=== PATIENT | female | born 1980 | race Caucasian/White ===

== ENCOUNTER 2016-07-31 17:38 | Emergency (ER) | payer OTHER ==
[2016-07-31] MEDS ORDERED: Metoclopramide 10 MG/2 ML SDV IVPUSH ONE (18:02)
[2016-07-31] MEDS ORDERED: HYDROmorphone 0.5 MG/0.5 ML Syringe IVPUSH ONE ×2 (18:02→18:44)
--- NOTE | 2016-07-31 18:07 | EDM.PDOC ---
<Dave Morris - Last Filed: 07/31/16 20:32> ED HPI GENERAL MEDICAL PROBLEM - General Chief Complaint: Abdominal Pain Stated Complaint: LT SIDE ABD PAIN Time Seen by Provider: 07/31/16 18:01 - Related Data Allergies Allergy/AdvReac Type Severity Reaction Status Date / Time No Known Allergies Allergy Verified 07/02/15 08:38 Home Meds: Home Meds Hydrocodone/Acetaminophen [[place] 5-325 Tablet] 1 - 2 tab PO Q6H PRN #20 tablet 07/02/15 [Rx] Levofloxacin [Levaquin] 1 tab PO Q24H #4 tablet 07/02/15 [Rx] Ondansetron [Zofran ODT] 1 tab PO Q8H PRN #20 tab.dis 07/02/15 [Rx] Tamsulosin [Flomax] 1 tab PO DAILY #4 cap.er 07/02/15 [Rx] Course - Vital Signs Last Recorded V/S: Last Vital Signs Temp 37.1 C 07/31/16 17:48 Pulse 87 07/31/16 18:57 Resp 16 07/31/16 18:57 BP 127/74 07/31/16 18:57 Pulse Ox 98 07/31/16 18:57 - Orders/Labs/Meds Labs: Laboratory Tests 07/31/16 07/31/16 Range/Units 17:55 17:55 Urine Color Light yellow (Yellow) Urine Appearance Clear (Clear) Urine pH 6.0 (5.0-8.0) Ur Specific [place] 1.010 (1.005-1.030) Urine Protein Negative (Negative) Urine Glucose (UA) Negative (Negative) Urine Ketones Negative (Negative) Urine Occult Blood Trace-lysed H (Negative) Urine Nitrite Negative (Negative) Urine Bilirubin Negative (Negative) Urine Urobilinogen 0.2 (0.2-1.0) Ur Leukocyte Esterase Negative (Negative) Urine RBC 0-5 (0-5) /hpf Urine WBC 0-5 (0-5) /hpf Ur Epithelial Cells Not Reportable Ur Squamous Epith Cells 5-10 H (0-5) /hpf Urine Bacteria Few (FEW) /hpf Urine Mucus Not seen (FEW) /hpf Urine HCG, Qual Negative (NEGATIVE) Meds: Medications Discontinued Medications Generic Name Dose Route Start Last Admin Trade Name Freq PRN Reason Stop Dose Admin Hydromorphone HCl 0.5 mg 07/31/16 18:02 07/31/16 18:19 Dilaudid IVPUSH 07/31/16 18:03 0.5 mg ONETIME ONE Administration Hydromorphone HCl 0.5 mg 07/31/16 18:44 07/31/16 19:55 Dilaudid IVPUSH 07/31/16 18:45 0.5 mg ONETIME ONE Administration Sodium Chloride 1,000 mls @ 150 mls/hr 07/31/16 18:15 07/31/16 18:17 Normal Saline IV 150 mls/hr ASDIRECTED CHECO Administration Ketorolac Tromethamine 30 mg 07/31/16 18:15 07/31/16 18:23 Toradol IVPUSH 30 mg ONETIME CHECO Administration Metoclopramide HCl 7.5 mg 07/31/16 18:02 07/31/16 18:17 Reglan IVPUSH 07/31/16 18:03 7.5 mg ONETIME ONE Administration - Re-Assessments/Exams Free Text/Narrative Re-Assessment/Exam: 07/31/16 20:10. Have assumed care from Dr. Reynolds at change of shift. CT report is back and does show 2 small nonobstructing stones within the left kidney no ureteral dilatation or ureteral stone is seen, see radiology report for details. No other acute findings present. Patient is feeling better. The nausea that she had on arrival is much better still mild left flank discomfort, but improved from arrival. When questioned further she did have a couple of episodes of vomiting prior to arrival. Her discomfort has been primarily in the left flank, no pelvic pain today or pelvic tenderness at this time. We will infuse the remainder of her normal saline to help get her hydration up. Discharge instructions as documented Departure - Departure Time of Disposition: 20:45 Disposition: Home, Self-Care 01 Condition: fair Clinical Impression: Abdominal pain Qualifiers: Abdominal location: left upper quadrant Qualified Code(s): R10.12 - Left upper quadrant pain Vomiting Qualifiers: Vomiting type: unspecified Vomiting Intractability: non-intractable Nausea presence: with nausea Qualified Code(s): R11.2 - Nausea with vomiting, unspecified - Discharge Information Instructions: Abdominal Pain, Adult, [id number], Nausea, Adult, [id number] Referrals: Betty Wellington PA-C [Primary Care Provider] - Forms: ED Department Discharge Additional Instructions: Clear liquids until noon tomorrow, then careful bland diet as tolerated, zofran if needed for further nausea or vomiting. Followup clinic if not much better within one to 2 days as expected, return to ED as needed if symptoms worsening in any way. <Oziel Reynolds - Last Filed: 08/03/16 06:26> ED HPI GENERAL MEDICAL PROBLEM - General Source of Information: Reports: Patient History Limitations: Reports: No Limitations - History of Present Illness INITIAL COMMENTS - FREE TEXT/NARRATIVE: 36-year-old female presents the ED with left side pain radiate down to her left groin. She believes she had some diffuse left-sided abdominal pain flank pain last night but was very mild. This afternoon in the cornified pain intensified enough to make her vomit x2. She felt dizzy lightheaded and like she couldn't get her breath for a period of time. Associated feeling of need to void and to defecate. Patient is previous renal colic on the right side and passed a stone on Mother's Day this year. CT scan was done at that time and I will look for the films. At present she still feels mildly nauseated. She rates the pain as 5/ 10. She states this feels completely different than what she explains with her passage of kidney stone in the right side in the past. Pain presently as constant without a colicky component. Sitting and gallbladder make the pain worse. 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 Denies: Fever, Chills, Malaise HEENT: Reports: No Symptoms Respiratory: Reports: Shortness of Breath. Denies: Wheezing, Pleuritic Chest Pain, Cough, Sputum Cardiovascular: Reports: Chest Pain (Heaviness in the lower chest relieved after vomiting.). Denies: Blood Pressure Problem, Claudication, Dyspnea on Exertion, Edema, Lightheadedness, Orthopnea Endocrine: Reports: No Symptoms GI/Abdominal: Reports: Abdominal Pain (History present illness) : Reports: Frequency. Denies: Hematuria Musculoskeletal: Reports: Back Pain (Mild left flank discomfort.) Skin: Reports: No Symptoms Neurological: Reports: No Symptoms Psychiatric: Reports: No Symptoms, Other Hematologic/Lymphatic: Reports: No Symptoms Immunologic: Reports: No Symptoms ED EXAM, RENAL/ - Physical Exam Exam: See Below Exam Limited By: No Limitations General Appearance: WD/WN, Mild Distress Eye Exam: Bilateral Eye: Normal Inspection Respiratory/Chest: No Respiratory Distress, Lungs Clear, Normal Breath Sounds, No Accessory Muscle Use, Chest Non-Tender Cardiovascular: Normal Peripheral Pulses, Regular Rate, Rhythm, No Edema, No Gallop, No Murmur, Tachycardia (Mild tachycardia breast one or 2 per minute.) GI/Abdominal: Soft, Non-Tender, No Organomegaly, No Distention, Abnormal Bowel Sounds (Hypoactive bowel sounds.). No: Guarding, Rigid, Rebound, Tender Back Exam: Normal Inspection, Full Range of Motion. No: CVA Tenderness (L), CVA Tenderness (R) Extremities: Normal Inspection, Normal Range of Motion, Non-Tender, No Pedal Edema, Normal Capillary Refill Neurological: Alert, Oriented, CN II-XII Intact, Normal Cognition, Normal Gait, No Motor/Sensory Deficits Psychiatric: Normal Affect, Normal Mood Skin Exam: Warm, Dry, Intact, Normal Color, No Rash Course - Orders/Labs/Meds Labs: Laboratory Tests 07/31/16 07/31/16 Range/Units 17:55 17:55 Urine Color Light yellow (Yellow) Urine Appearance Clear (Clear) Urine pH 6.0 (5.0-8.0) Ur Specific [place] 1.010 (1.005-1.030) Urine Protein Negative (Negative) Urine Glucose (UA) Negative (Negative) Urine Ketones Negative (Negative) Urine Occult Blood Trace-lysed H (Negative) Urine Nitrite Negative (Negative) Urine Bilirubin Negative (Negative) Urine Urobilinogen 0.2 (0.2-1.0) Ur Leukocyte Esterase Negative (Negative) Urine RBC 0-5 (0-5) /hpf Urine WBC 0-5 (0-5) /hpf Ur Epithelial Cells Not Reportable Ur Squamous Epith Cells 5-10 H (0-5) /hpf Urine Bacteria Few (FEW) /hpf Urine Mucus Not seen (FEW) /hpf Urine HCG, Qual Negative (NEGATIVE) Meds: Medications Discontinued Medications Generic Name Dose Route Start Last Admin Trade Name Freq PRN Reason Stop Dose Admin Hydromorphone HCl 0.5 mg 07/31/16 18:02 07/31/16 18:19 Dilaudid IVPUSH 07/31/16 18:03 0.5 mg ONETIME ONE Administration Hydromorphone HCl 0.5 mg 07/31/16 18:44 07/31/16 19:55 Dilaudid IVPUSH 07/31/16 18:45 0.5 mg ONETIME ONE Administration Sodium Chloride 1,000 mls @ 150 mls/hr 07/31/16 18:15 07/31/16 18:17 Normal Saline IV 150 mls/hr ASDIRECTED CHECO Administration Ketorolac Tromethamine 30 mg 07/31/16 18:15 07/31/16 18:23 Toradol IVPUSH 30 mg ONETIME CHECO Administration Metoclopramide HCl 7.5 mg 07/31/16 18:02 07/31/16 18:17 Reglan IVPUSH 07/31/16 18:03 7.5 mg ONETIME ONE Administration - Radiology Interpretation Free Text/Narrative:: 36 show female presents to the ED with rather acute onset of left lower abdominal pain radiating to her left groin. Associated spontaneous nausea and vomiting as the pain intensified x2. Emesis was bilious. Associated feeling of need to defecate and to void. She has had a history of renal colic with a stone identified at the [facility] on the right side in June of this year. On looking at the CT scan performed at that time there appears to be a less than 1 mm stone in the parenchyma of the left kidney. The CT was done with contrast and therefore partially disc years is stone in the renal parenchyma. Urine sample that she passed well her is very dilute with water and does not appear to be bloody in any fashion are formed. He will be sent for analysis. Her history is compatible with left renal colic. She had benign abdominal exam. Plan: Will await the urinalysis. IV normal saline at 150 mils per hour. Given Dilaudid 0.5 mg IV with Toradol 30 mg IV and Reglan 7.5 mg IV for pain relief. - Re-Assessments/Exams Free Text/Narrative Re-Assessment/Exam: 08/03/16 06:25upon my review of the CT of the exam. There is no evidence of a obstructing stone within the left ureteric system. However there is a large amount of stool throughout the entire colon therefore the most likely cause of her left flank and left lower quadrant pain is due to constipation.
[2016-07-31] MEDS ORDERED: Sodium Chloride 0.9% 1,000 ML IV SCH (18:15)
[2016-07-31] MEDS ORDERED: Ketorolac 30 MG/ML SDV IVPUSH SCH (18:15)
[2016-07-31 18:57] VITALS: BP 127/74
--- NOTE | 2016-07-31 19:25 | CT ---
CT abdomen and pelvis Technique: Multiple axial sections were obtained from above the kidneys inferiorly to the pubic symphysis. Intravenous and oral contrast was not utilized. Study has been performed as a ureteral stone protocol. Comparison: Previous CT abdomen and pelvis exam dated 07/02/15. Findings: 2 small nonobstructing calculi are noted within the left kidney measuring less than 5 mm. Right kidney shows no renal calculi. No ureteral dilatation or ureteral stone is seen on either the right or left sides. Visualized lower portions of the liver and spleen appears within normal limits. Gallbladder shows no calcified gallstones. Pancreas shows no discrete abnormality. Adrenal glands show no nodule. Aorta shows no aneurysmal dilatation. No retroperitoneal adenopathy or mesenteric abnormalities are seen. No pelvic mass or adenopathy is seen. Appendix is seen which appears normal. No bowel dilatation is seen. No inflammatory change or free fluid is seen. Bone window settings were reviewed which appears within normal limits for the patient's age. Impression: 1. 2 small nonobstructing calculi within the left kidney. No ureteral dilatation or ureteral stone is seen. 2. No additional abnormality is appreciated on CT study of the abdomen and pelvis performed as a ureteral stone protocol. Diagnostic code #2
== END 2016-07-31 21:15 | disposition home or self-care (01) ==
LOC: JD.ED 17:38
DX: R10.12 Left upper quadrant pain (principal); R11.2 Nausea with vomiting, unspecified; Z79.899 Other long term (current) drug therapy; Z98.890 Other specified postprocedural states
CPT/HCPCS: 74176; 81001; 81025; 96361; 96374; 96375; 96376; 99284; J1170; J1885; J2765; J7040

== ENCOUNTER 2018-02-26 20:40 | Emergency (ER) | payer BC, OTHER ==
[2018-02-26 21:11] VITALS: BP 156/95
[2018-02-26] MEDS ORDERED: Sodium Chloride 0.9% 10 ML Syringe FLUSH PRN (21:18)
[2018-02-26] MEDS ORDERED: Alum Hydrox/Mag Hydrox/Simeth 30 ML, Lidocaine 2% 15 ML PO ONE ×2 (21:18)
--- NOTE | 2018-02-26 21:23 | EDM.PDOC ---
ED HPI GENERAL MEDICAL PROBLEM - General Chief Complaint: Chest Pain Stated Complaint: chest pain Time Seen by Provider: 02/26/18 21:01 Source of Information: Reports: Patient History Limitations: Reports: No Limitations - History of Present Illness INITIAL COMMENTS - FREE TEXT/NARRATIVE: 37-year-old female presents for evaluation and treatment of chest pain. Patient reports the chest pain started suddenly today around 1300. Reports she was sitting at her desk when the chest pain started. Identifies pain in the center of her chest. Currently rates the pain as 5-6 out of 10. Initially was a sharp stabbing pain that is now more of an ache and pressure. She describes the pressure as a balloon inflating pressure chest. She reports associated symptoms of nausea, vomiting, chills, dizziness and diaphoresis. She states that her hands and feet are sweating. Reports she's been expressing night sweats recently. She denies any syncope. Reports she's been ill with upper respiratory section last 5-6 weeks. Was placed on Augmentin around giving and continues to have cough and congestion. Does not have a history of any recent history of trauma to the chest such as motor vehicle accident. Has a past medical history of asthma and uses an inhaler for this. Patient reports her last menstrual period just stopped a few days ago. Denies any chance of . Patient reports that she does drink alcohol on a nightly basis has been doing this for the last few years. She states she will drink anywhere from one shot to 6 shots a night. Last alcohol was last night. No history of any tremors or seizures with alcohol withdrawal. epigastric/mid chest Pain Score (Numeric/FACES): 7 - Related Data Allergies Allergy/AdvReac Type Severity Reaction Status Date / Time tretinoin [From Retin-A] Allergy Rash Verified 02/26/18 20:53 Home Meds: Home Meds Calcium Carbonate [Tums] 400 mg PO ASDIRECTED PRN 02/26/18 [History] Docosahexanoic Acid [ Dha] 200 mg PO DAILY 02/26/18 [History] Fish Oil/[place]-3 Fatty Acids [Fish Oil 1,000 MG] 1 each PO DAILY 02/26/18 [ History] LORazepam [Ativan] 0.5 mg PO Q8HR PRN #10 tablet 02/26/18 [Rx] Omeprazole 20 mg PO BIDAC #28 cap.sr 02/26/18 [Rx] Past Medical History Genitourinary History: Reports: Renal Calculus 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) Other SLURRY BLENDER History: "leep procedure for HPV" Psychiatric History: Reports: Addiction, Anxiety, Depression Other Psychiatric History: states abuses alcohol Dermatologic History: Reports: Eczema - Infectious Disease History Infectious Disease History: Reports: Chicken Pox - Past Surgical History Other Female Surgeries/Procedures: kidney stones Musculoskeletal Surgical History: Reports: Arthroscopic Procedure Social & Family History - Family History Family Medical History: Noncontributory - Tobacco Use Smoking Status *Q: Former Smoker Used Tobacco, but Quit: No - Caffeine Use Caffeine Use: Reports: Coffee - Alcohol Use Days Per Week of Alcohol Use: 7 Number of Drinks Per Day: 5 Total Drinks Per Week: 35 Date of Last Drink: 02/25/18 Time of Last Drink: 21:00 - Recreational Drug Use Recreational Drug Use: No - Living Situation & Occupation Living situation: Reports: , with Family Occupation: Employed ED ROS GENERAL - Review of Systems Review Of Systems: See Below Constitutional: Reports: Night Sweats, Diaphoresis. Denies: Fever, Chills Respiratory: Reports: Shortness of Breath, Cough Cardiovascular: Reports: Chest Pain GI/Abdominal: Reports: Nausea, Vomiting. Denies: Abdominal Pain Neurological: Reports: Dizziness. Denies: Seizure, Syncope, Tremors ED EXAM, GENERAL - Physical Exam Exam: See Below Exam Limited By: No Limitations General Appearance: Alert, WD/WN, No Apparent Distress Throat/Mouth: Normal Inspection, Normal Voice, No Airway Compromise Respiratory/Chest: No Respiratory Distress, Lungs Clear, Normal Breath Sounds Cardiovascular: Normal Peripheral Pulses, Regular Rate, Rhythm, No Murmur Peripheral Pulses: 2+: Radial (L), Radial (R) GI/Abdominal: Soft, Non-Tender Extremities: Normal Inspection Neurological: Alert, Oriented, Normal Cognition Psychiatric: Normal Affect, Normal Mood Skin Exam: Warm, Dry, Normal Color EKG INTERPRETATION EKG Date: 02/26/18 Time: 20:55 Rhythm: NSR Rate (Beats/Min): 92 [place]: Normal P-Wave: Present QRS: Normal ST-T: Normal QT: Normal EKG Interpretation Comments: NSR at 92 bpm. No acute changes. Normal EKG. Reviewed by myself and Dr. Reynolds. Course - Vital Signs Last Recorded V/S: Last Vital Signs Temp 98.4 F 02/26/18 20:40 Pulse 102 H 02/26/18 20:40 Resp 18 02/26/18 20:40 BP 156/95 H 02/26/18 20:40 Pulse Ox 100 02/26/18 20:40 - Orders/Labs/Meds Labs: Laboratory Tests 02/26/18 02/26/18 02/26/18 Range/Units 20:54 20:54 20:54 WBC 11.00 H (3.98-10.04) K/mm3 RBC 4.68 (3.98-5.22) M/mm3 Hgb 14.3 (11.2-15.7) gm/L Hct 41.9 (34.1-44.9) % MCV 89.5 (79.4-94.8) fl MCH 30.6 (25.6-32.2) pg MCHC 34.1 (32.2-35.5) g/dl RDW Std Deviation 41.1 (36.4-46.3) fL Plt Count 319 (182-369) K/mm3 MPV 10.1 (9.4-12.3) fl Neut % (Auto) 72.9 H (34.0-71.1) % Lymph % (Auto) 22.0 (19.3-51.7) % [place] % (Auto) 3.3 L (4.7-12.5) % Eos % (Auto) 1.1 (0.7-5.8) Baso % (Auto) 0.3 (0.1-1.2) % Neut # (Auto) 8.03 H (1.56-6.13) K/mm3 Lymph # (Auto) 2.42 (1.18-3.74) K/mm3 [place] # (Auto) 0.36 (0.24-0.36) K/mm3 Eos # (Auto) 0.12 (0.04-0.36) K/mm3 Baso # (Auto) 0.03 (0.01-0.08) K/mm3 D-Dimer, Quantitative 0.23 (0.19-0.50) mg/L Sodium 139 (136-145) mEq/L Potassium 3.7 (3.5-5.1) mEq/L Chloride 102 (98-107) mEq/L Carbon Dioxide 25 (21-32) mEq/L Anion Gap 15.7 H (5-15) BUN 11 (7-18) mg/dL Creatinine 1.2 H (0.55-1.02) mg/dL Est Cr Clr Drug Dosing 60.09 mL/min Estimated GFR (MDRD) 51 (>60) mL/min BUN/Creatinine Ratio 9.2 L (14-18) Glucose 148 H (74-106) mg/dL Calcium 9.3 (8.5-10.1) mg/dL Magnesium 1.8 (1.8-2.4) mg/dl Total Bilirubin 0.5 (0.2-1.0) mg/dL AST 22 (15-37) U/L ALT 42 (14-59) U/L Alkaline Phosphatase 68 (46-116) U/L Troponin I < 0.017 (0.00-0.056) ng/mL Total Protein 7.7 (6.4-8.2) g/dl Albumin 4.0 (3.4-5.0) g/dl Globulin 3.7 gm/dL Albumin/Globulin Ratio 1.1 (1-2) Lipase 94 (73-393) U/L Urine Color (Yellow) Urine Appearance (Clear) Urine pH (5.0-8.0) Ur Specific [place] (1.005-1.030) Urine Protein (Negative) Urine Glucose (UA) (Negative) Urine Ketones (Negative) Urine Occult Blood (Negative) Urine Nitrite (Negative) Urine Bilirubin (Negative) Urine Urobilinogen (0.2-1.0) Ur Leukocyte Esterase (Negative) Urine RBC (0-5) /hpf Urine WBC (0-5) /hpf Ur Epithelial Cells (0-5) /hpf Urine Bacteria (FEW) /hpf Urine Mucus (FEW) /hpf Urine HCG, Qual (NEGATIVE) Ethyl Alcohol 0.00 (0.00) gm% 02/26/18 02/26/18 Range/Units 21:49 21:49 WBC (3.98-10.04) K/mm3 RBC (3.98-5.22) M/mm3 Hgb (11.2-15.7) gm/L Hct (34.1-44.9) % MCV (79.4-94.8) fl MCH (25.6-32.2) pg MCHC (32.2-35.5) g/dl RDW Std Deviation (36.4-46.3) fL Plt Count (182-369) K/mm3 MPV (9.4-12.3) fl Neut % (Auto) (34.0-71.1) % Lymph % (Auto) (19.3-51.7) % [place] % (Auto) (4.7-12.5) % Eos % (Auto) (0.7-5.8) Baso % (Auto) (0.1-1.2) % Neut # (Auto) (1.56-6.13) K/mm3 Lymph # (Auto) (1.18-3.74) K/mm3 [place] # (Auto) (0.24-0.36) K/mm3 Eos # (Auto) (0.04-0.36) K/mm3 Baso # (Auto) (0.01-0.08) K/mm3 D-Dimer, Quantitative (0.19-0.50) mg/L Sodium (136-145) mEq/L Potassium (3.5-5.1) mEq/L Chloride (98-107) mEq/L Carbon Dioxide (21-32) mEq/L Anion Gap (5-15) BUN (7-18) mg/dL Creatinine (0.55-1.02) mg/dL Est Cr Clr Drug Dosing mL/min Estimated GFR (MDRD) (>60) mL/min BUN/Creatinine Ratio (14-18) Glucose (74-106) mg/dL Calcium (8.5-10.1) mg/dL Magnesium (1.8-2.4) mg/dl Total Bilirubin (0.2-1.0) mg/dL AST (15-37) U/L ALT (14-59) U/L Alkaline Phosphatase (46-116) U/L Troponin I (0.00-0.056) ng/mL Total Protein (6.4-8.2) g/dl Albumin (3.4-5.0) g/dl Globulin gm/dL Albumin/Globulin Ratio (1-2) Lipase (73-393) U/L Urine Color Yellow (Yellow) Urine Appearance Clear (Clear) Urine pH 7.0 (5.0-8.0) Ur Specific [place] 1.015 (1.005-1.030) Urine Protein Negative (Negative) Urine Glucose (UA) Negative (Negative) Urine Ketones Negative (Negative) Urine Occult Blood Negative (Negative) Urine Nitrite Negative (Negative) Urine Bilirubin Negative (Negative) Urine Urobilinogen 0.2 (0.2-1.0) Ur Leukocyte Esterase Negative (Negative) Urine RBC 0-5 (0-5) /hpf Urine WBC 0-5 (0-5) /hpf Ur Epithelial Cells 0-5 (0-5) /hpf Urine Bacteria Not seen (FEW) /hpf Urine Mucus Not seen (FEW) /hpf Urine HCG, Qual Negative (NEGATIVE) Ethyl Alcohol (0.00) gm% Meds: Medications Discontinued Medications Generic Name Dose Route Start Last Admin Trade Name Freq PRN Reason Stop Dose Admin Al Hydroxide/Mg Hydroxide 30 0 ml 02/26/18 21:18 02/26/18 21:27 ml/ Lidocaine HCl 15 ml PO 02/26/18 21:19 45 ml ONETIME ONE Administration Famotidine 20 mg 02/26/18 22:47 02/26/18 22:56 Pepcid IVPUSH 02/26/18 22:48 20 mg ONETIME ONE Administration Lactated Ringer's 1,000 mls @ 999 mls/hr 02/26/18 22:08 02/26/18 22:12 Ringers, Lactated IV 02/26/18 23:08 999 mls/hr .BOLUS ONE Administration Lorazepam 0.5 mg 02/26/18 22:47 02/26/18 22:57 Ativan IVPUSH 02/26/18 22:48 0.5 mg ONETIME ONE Administration Sodium Chloride 10 ml 02/26/18 21:18 02/26/18 21:29 Saline Flush FLUSH 10 ml ASDIRECTED PRN Administration Keep Vein Open - Radiology Interpretation Free Text/Narrative:: chest xray shows no acute intrathoracic process - Re-Assessments/Exams Free Text/Narrative Re-Assessment/Exam: 02/26/18 23:09 Reviewed the labs, ekg and imaging with the patient. Suspect alcohol induced gastritis causing pain. Also has mild dehydration. Information given for alcohol abuse about groups and resources in the community. Feels improved at this time. Will discharge home. Discharge instructions as documented. Departure - Departure Time of Disposition: 23:17 Disposition: Home, Self-Care 01 Condition: Fair Clinical Impression: Gastritis due to alcohol without hemorrhage, Dehydration, mild Prescriptions: LORazepam [Ativan] 0.5 mg PO Q8HR PRN #10 tablet PRN Reason: Anxiety Omeprazole 20 mg PO BIDAC #28 cap.sr Instructions: Gastritis, Adult, [id number], Dehydration, Adult, [id number] Referrals: Alivia Paredes MD [Primary Care Provider] - Forms: ED Department Discharge Additional Instructions: you were given medication in the ER that can make you drowsy. Do not drive or operate machinery until you know how this medication will affect you. Take the omeprazole as prescribed. 1 cap PO bid. Follow-up with your PCP within 2 weeks for a recheck of your symptoms. Recommend avoiding alcohol and spicy foods. May take OTC antacids such as Tums for additional relief as needed. Ativan 1 tab PO every 8 hours prn anxiety. This medication may make you drowsy, do not drive or operate machinery until you know how this will affect you. Please return to the ER should your symptoms change or worsen.
[2018-02-26] MEDS ORDERED: Lactated Ringers 1,000 ML IV ONE (22:08)
[2018-02-26] MEDS ORDERED: Famotidine 20 MG/2 ML SDV IVPUSH ONE (22:47)
[2018-02-26] MEDS ORDERED: LORazepam 2 MG/ML SDV IVPUSH ONE (22:47)
--- NOTE | 2018-02-27 07:11 | CR ---
Chest: Two views of the chest were obtained. Comparison: No prior chest x-ray. Heart size and mediastinum are normal. Lungs are clear. Bony structures are unremarkable. Impression: 1. Nothing acute is seen on two-view chest x-ray. Diagnostic code #1
== END 2018-02-26 23:30 | disposition home or self-care (01) ==
LOC: JD.ED 20:40
DX: K29.20 Alcoholic gastritis without bleeding (principal); E86.0 Dehydration; J45.909 Unspecified asthma, uncomplicated; Z87.891 Personal history of nicotine dependence; Z88.8 Allergy status to other drugs, medicaments and biological substances
CPT/HCPCS: 36415; 71046; 80053; 81001; 81025; 83690; 83735; 84484; 85025; 85379; 93005; 96361; 96374; 96375; 99285; A9270; G0480; J2060; J3490; J7120

== ENCOUNTER 2019-10-20 05:35 | Inpatient (IN) | payer BC ==
--- NOTE | 2019-10-19 21:18 | PCM.LDHP ---
L&D History of Present Illness - General Date of Service: 10/20/19 Admit Problem/Dx: Admission Diagnosis/Problem Admission Diagnosis/Problem 10/19/19 21:03 Felicia is a 39-year-old 3 para 1-0-1-1 white female who was admitted on 10/20/2019 at 39-4/7 weeks gestational age for a primary section for breech presentation. Source of Information: Patient History Limitations: Reports: No Limitations - History of Present Illness Introduction:: Felicia is a 39-year-old 3 para 1-0-1-1 white female who was admitted on 10/20/2019 at 39-4/7 weeks gestational age for a primary section for breech presentation the procedure, its risks, benefits, follow-up after surgery and alternatives of care including allowing for natural labor onset and delivery in a breech presentation are discussed in detail with patient. She appears to understand and wishes to proceed with a section. Consent has been signed. BLOOD BANK TECHNOLOGIST history: Felicia is a 3 para 1-0-1-1 with an TAYO of 10/23/2019 as based upon an early ultrasound done at 11 and 3 7 weeks gestational age. Patient was seen early in the and followed on a regular basis throughout the . Her LMP was 01/14/2019 but was somewhat irregular. She had menarche at age 12. Cycles q. 26 days. Patient has had 2 pregnancies 1 1. Term delivering 11/28/2012 at 39 weeks gestational age after 12 hours of labor6 pound 3 ounce female born via . Child's name is Panfilo Lamar. Spontaneous miscarriage. course: Patient seen early and consistently through the . Her weight gain in was from 167.8 pounds to 190.2 pounds for approximately a 23 pound increase. Her vital signs remained stable throughout the course and her fundal height growth was normal. At approximately weeks patient was noted to have a baby in a breech presentation. It is persisted in that position and confirmed to be breech on ultrasound done on 10/19/2019. It appears to be a norma breech presentation. Discussion was held with patient as to alternatives of care and she has decided on a primary section. Patient is group B strep negative. 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 She was seen by maternal- medicine and followed on a consistent basis with serial ultrasounds. She has been noted to have a decrease in growth and last evaluation showed the baby at less than the 10th percentile. Everardo biophysical profiles have been 8. karyotype on the baby is recommended. Patient is 1 hour GTT was elevated at 133 but she had a normal 3-hour glucose tolerance test. Patient has some asthma and seasonal allergies but these have been reasonably stable at the end of the . Plans to breast-feed. She had a T dap done on 08/10/2019. Risk factors include XXX karyotype on prequel, history of LEEP in 2011, exercise-induced asthma and advanced maternal age. Laboratory testing in the shows her blood to be a positive with a negative antibody screen. First middle hemoglobin is 12.8 g/dL. Platelets were 247,000. She is rubella immune. RPR was nonreactive. Urine culture showed no growth after 2 days. Hepatitis B antigen and HIV assays were both negative. Chlamydia and gonorrhea tests were both negative. Second trimester labs showed a hemoglobin of 11.7 g/dL at which time patient was advised to start on iron therapy. Platelets at that time were 204,000. 1 hour glucose tolerance test was elevated at 133. Her 3-hour glucose tolerance test showed a fasting blood sugar of 93, a 1 hour glucose of 169, a 2-hour glucose of 154 and a 3-hour glucose of 85. Second trimester RPR done on 07/13/2019 was nonreactive. Group B strep screen was negative. Allergies: 1. Seasonal allergies 2. Retin-A Medications: vitamins 1 daily 2. Pro-air HFA 108 mcg per action inhalation aerosol solution used as needed 3. Fish oil 1 daily 4. Olopatadine HCl0.6% nasal solution PRN Past medical history: Cervical intraepithelial neoplasia with resultant LEEP in 2011 2. Exercise-induced asthma 3. 2012 4. Cystic acne 5. Eczema 6. History of depression and anxiety with remote history of medication use for this Past surgical history: 1. LEEP 2011 2. Ovarian cystectomy 1999 3. Left knee surgery 2010 Family history: Mother is alive and well with a history of endometriosis. Father is alive with a history of diabetes and bladder cancer. One sister alive with history of melanoma. Maternal grandmother is alive with basal cell carcinoma of the skin and heart disease. Maternal grandfather is secondary to lung cancerwas a smoker. Paternal grandmother is alive and well. Paternal grandfather is alive and well. Patient has no known family history of cancer, bleeding or blood clotting disorders, anesthesia related issues or related problems. Social history: Patient is . is Varinder Marroquin she is a college graduate. 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 She does not use any significant muscle alcohol, drugs or tobacco. Review of systems: In general patient has no complaints. He has been active. Skin: Negative Lungs: No infectious symptoms or shortness of breath Cardiovascular: No chest pain or exercise intolerance Breasts: Changes associated with . GI: Negative : Changes associated with Musculoskeletal: Negative Neurological: Negative Physical exam: In general the patient is well-developed, well-nourished, pleasant female of stated age in no acute distress. On last evaluation clinic patient's weight was 190.2 pounds. Her blood pressure is 132/70. heart rate was 135. Fundal height was at 38 cm. Baby is in a breech presentation. Confirmed with ultrasound. Skin is warm dry without lesions. HEENT, neck and back within normal limits. Lungs are clear with good breath sounds in all lung sigala. Cardiovascular exam shows regular and rhythm without murmurs. Breast exam is deferred having been done at first medical visit and found to be normal. Patient does plan to breast-feed. Abdomen is gravid with last fundal height at 38 cm. Wilfrido maneuvers reveal breech presentation. Genital exam on last evaluation in clinic shows cervix to be 2 cm, 80% effaced, very soft, mid position, breech presentation. Extremities and neurological exam are grossly within normal limits. - Related Data Allergies/Adverse Reactions: Allergies Allergy/AdvReac Type Severity Reaction Status Date / Time tretinoin [From Retin-A] Allergy Mild Rash Verified 10/19/19 15:31 Home Medications: Home Meds Fish Oil/[place]-3 Fatty Acids [Fish Oil 1,000 MG] 1 each PO DAILY 02/26/18 [History] Albuterol [Proair HFA] 108 mcg INH ASDIRECTED PRN 10/19/19 [History] Olopatadine HCl 1 spray NS DAILY 10/19/19 [History] Pnv No.95/Ferrous Fum/Folic AC [ Caplet] 1 each PO DAILY 10/19/19 [History] Past Medical History Respiratory History: Reports: Asthma Genitourinary History: Reports: Renal Calculus BLOOD BANK TECHNOLOGIST History: Reports: , Other (See Below) Other OB/BYN History: "leep procedure for HPV". 1 SAB Psychiatric History: Reports: Addiction, Anxiety, Depression Other Psychiatric History: h/o alcholism in prental, patient on phone denied any alcohol/drug use. Dermatologic History: Reports: Eczema - Infectious Disease History Infectious Disease History: Reports: Chicken Pox - Past Surgical History Female Surgical History: Reports: LEEP Other Female Surgeries/Procedures: kidney stones, ovarian cystectomy 1999, leep 2011 Musculoskeletal Surgical History: Reports: Arthroscopic Procedure Other Musculoskeletal Surgeries/Procedures:: Left knee procedure 2010 Social & Family History - Family History Family Medical History: Noncontributory - Tobacco Use Smoking Status *Q: Never Smoker Second Hand Smoke Exposure: No - Caffeine Use Caffeine Use: Reports: None - Recreational Drug Use Recreational Drug Use: No - Living Situation & Occupation Living situation: Reports: , with Family Occupation: Employed H&P Review of Systems - Review of Systems: Review Of Systems: See Below L&D Exam - Exam Exam: See Below - Patient Data Lab Results Last 24 hrs: Laboratory Results - last 24 hr 10/19/19 10/19/19 Range/Units 10:30 10:30 WBC 10.74 H (3.98-10.04) K/mm3 RBC 4.62 (3.98-5.22) M/mm3 Hgb 13.7 D (11.2-15.7) gm/dl Hct 41.3 (34.1-44.9) % MCV 89.4 (79.4-94.8) fl MCH 29.7 (25.6-32.2) pg MCHC 33.2 (32.2-35.5) g/dl RDW Std Deviation 44.4 (36.4-46.3) fL Plt Count 181 L (182-369) K/mm3 MPV 11.7 (9.4-12.3) fl Neut % (Auto) 75.0 H (34.0-71.1) % Lymph % (Auto) 16.2 L (19.3-51.7) % [place] % (Auto) 6.1 (4.7-12.5) % Eos % (Auto) 0.9 (0.7-5.8) Baso % (Auto) 0.4 (0.1-1.2) % Neut # (Auto) 8.05 H (1.56-6.13) K/mm3 Lymph # (Auto) 1.74 (1.18-3.74) K/mm3 [place] # (Auto) 0.66 H (0.24-0.36) K/mm3 Eos # (Auto) 0.10 (0.04-0.36) K/mm3 Baso # (Auto) 0.04 (0.01-0.08) K/mm3 Manual Slide Review Normal smear Blood Type A POSITIVE Gel Antibody Screen Negative Result Diagrams: 10/19/19 10:30 Problem List Initiated/Reviewed/Updated: Yes Orders Last 24hrs: Active Orders 24 hr Category Date Time Status RAPID PLASMA REAGIN,RPR [CHEM] Routine Lab 10/19/19 10:30 Received Assessment/Plan Comment:: 1. 39-4/7-week intrauterine , norma breech presentation admitted for primary section. 2. [place]requel noninvasive screen shows XXX karyotype. Followed by MFM. No contraindications to delivery in [place]. Post delivery karyotype recommended on the baby. 3. Growth restriction late in but with reassuring testing with weekly BPP's 10/02. 4. Plans to breast-feed 5. Risk factors include exercise-induced asthma, growth restriction, XXX karyotype on prequel evaluation, breech presentation, age of 39 years 6. Tdap given on 08/10/2019 7. Patient is rubella immune. 8. Influenza shot given 12/05/2018. Plan: 1. Primary low uterine segment transverse section through Pfannenstiel skin incision under spinal block. Procedure, risks, benefits, alternatives of care discussed in detail with patient. She appears understand, wishes to proceed and signed a consent for surgery. 2. Recommend karyotype on baby. 3. Pumping Station Supervisor to be in attendance at the time of delivery 4. Preoperative laboratory testing consist of a CBC, type and screen, RPR, COVID testing 5. Support breast-feeding decision 6. DVT prophylaxis with SCDs 7. Ancef 2 g IV for antibiotic prophylaxis prior to surgery.
[~2019-10-20 05:35] MED LIST: Sodium Chloride 0.9% 10 ML Syringe FLUSH PRN
[2019-10-20] MEDS: Lactated Ringers 1,000 ML IV SCH ×3 (06:15→07:37)
[2019-10-20] MEDS ORDERED: Metoclopramide 10 MG/2 ML SDV IVPUSH ONE (06:30)
[2019-10-20] MEDS ORDERED: Citric Acid/Sodium Citrate Solution 30 ML Cup PO ONE (06:30)
[2019-10-20] MEDS ORDERED: Metoclopramide 10 MG/2 ML SDV ONE (06:40)
[2019-10-20] MEDS ORDERED: Citric Acid/Sodium Citrate Solution 30 ML Cup ONE (06:40)
[2019-10-20] MEDS ORDERED: Lactated Ringers 1,000 ML ONE ×2 (06:45→07:25)
[2019-10-20] MEDS ORDERED: ceFAZolin 2 GM in Premix Bag 1 BAG IV ONE (07:00)
[2019-10-20] MEDS ORDERED: Morphine PF 1 MG/ML Amp ONE (07:09)
[2019-10-20] MEDS ORDERED: Bupivacaine 0.75%/D5W 2 ML Amp ONE (07:10)
[2019-10-20] MEDS ORDERED: Oxytocin/Lactated Ringers 20 UNIT/1,000 ML BAG IV SCH (08:00)
[2019-10-20] MEDS: Bupivacaine 0.5% 30 ML SDV ONE ×2 (08:11→08:12)
[2019-10-20] MEDS ORDERED: fentaNYL 100 MCG/2 ML SDV ONE (08:17)
[2019-10-20] MEDS ORDERED: Ketamine 500 mg/10 ML MDV ONE (08:19)
[2019-10-20] MEDS ORDERED: Albuterol 6.7 GM Inhaler INH PRN (08:50)
--- NOTE | 2019-10-20 09:03 | PCM.OPNOTE ---
- General Post-Op/Procedure Note Date of Surgery/Procedure: 10/20/19 Operative Procedure(s): Primary low uterine segment transverse section through Pfannenstiel skin incision Findings: The baby was found to be in a norma breech presentation. Amniotic fluid was clear. Umbilical cord had 3 vessels and uterus tubes and ovaries were consistent with term . No abnormalities were noted. The baby delivered at 0815 hrs. on 10/20/2019. Female infant weighing 2930 g (6 pounds 7 ounces) of 2 at 1 minute, 4 at 5 minutes and 9 at 10 minutes. Urine output 250 cc. Estimated blood loss 500 cc. IV fluid in 2200 cc Pre Op Diagnosis: 1. 39-4/7-week intrauterine . 2. Norma breech presentation. 3. Advanced maternal age of 39 years. 4. XXX sex chromosome composition. 5. Growth restriction per ultrasound evaluation Post-Op Diagnosis: Same Anesthesia Technique: Spinal Other Anesthesia Type: Marcaine 0.5% - 20 cc local Primary Surgeon: Brett Martinez Secondary Surgeon: Surendra Solano Anesthesia Provider: Carolyn Maier Special Effects Artist: Megan Spencer Reason Special Effects Artist Was Necessary: Retraction, assistance, patient safety, quality of care Fluid Replacement, Intraop: 2,200 Output, Urine Amount: 250 EBL in mLs: 500 Drain/Tube Comments:: Indwelling bladder catheter Complications: None Condition: Good Free Text/Narrative:: Intake & Output 10/19/19 10/20/19 10/20/19 22:59 06:59 14:59 Intake Total 1000 Balance 1000 Surgery duration: 20 minutes Surgery duration: Procedure: The patient is appropriately consented. Patient was transferred to the room and placed in a sitting position. Spinal anesthesia was administered. After confirmation of adequate anesthesia patient was placed in a supine position with a wedge under her right side to facilitate left lateral positioning. The patient was prepped and draped in usual fashion after Olivares catheter was already placed . The anesthetic was checked and found to be adequate. 20 mL of Marcaine 0.5% was injected locally in the Pfannenstiel incision site. The Pfannenstiel skin incision was then made and carried down through skin, subcutaneous and fascial layers. The fascia was then undermined superiorly and inferiorly to allow for adequate operating room. The recti muscles midline and preperitoneal fat was bluntly dissected. Peritoneal cavity was entered longitudinally. The vesicouterine peritoneum was then incised transversely and bladder flap was developed. Myometrium was incised transversely to the level of the amniotic sac. This incision was extended bilaterally in a blunt fashion. The amniotic sac was then ruptured resulting in clear amniotic fluid. A hand is placed in the low uterine segment and the baby's breech was brought forth through the incision. The baby was completely delivered using fundal pressure and complete breech extraction technique done in a routine fashion. The nose and mouth were bulb suctioned. Baby's cord was clamped x2 cut and baby was handed off to attending digital commentator Dr Rowley. Cord blood was obtained for routine evaluation but also for karyotype as desired per pediatrics. The placenta was expressed after cord blood was obtained. Uterus was then exteriorized to allow for easier closure. The cervix was assessed and found to be dilated adequately to allow egress of blood. The uterus was closed in 2 layers. The first layer a running locked suture of 0 Monocryl, the second layer a running locked vertical mattress suture of 0 Monocryl. Hemostasis confirmed at this time. Sponge instrument needle counts are correct. The uterus was returned to the abdominal cavity and lateral gutters were cleared of blood. Once again sponge needle counts are correct. The anterior abdominal wall was closed with a #1 PDS suture from angle to angle. The subcutaneous area was found to be free of any bleeders. interrupted sutures of 3-0 Monocryl were used to reapproximate the subcutaneous layer.Skin was closed with a running subcuticular stitch of 3-0 Monocryl in a vertical mattress suture fashion using a Edward ruiz le. Prineo mesh/glue was then applied to further approximate the incision. It should be noted that patient received 2 g of Ancef preoperatively for infection prophylaxis and had Pitocin infused after delivery of the placenta to facilitate uterine contraction. She also had sequential compression stockings in place for DVT prophylaxis. Patient was discharged from the operating room in satisfactory condition.
--- NOTE | 2019-10-20 09:07 | PCM.POSTAN ---
POST ANESTHESIA ASSESSMENT - MENTAL STATUS Mental Status: Alert, Oriented - VITAL SIGNS Vital Signs: Last Vital Signs Temp 36.7 C 10/20/19 08:45 Pulse 90 10/20/19 05:30 Resp 11 L 10/20/19 09:00 BP 121/76 10/20/19 09:00 Pulse Ox 97 10/20/19 09:00 - RESPIRATORY Respiratory Status: Respiratory Rate WNL, Airway Patent, O2 Saturation Stable - CARDIOVASCULAR CV Status: Pulse Rate WNL, Blood Pressure Stable - GASTROINTESTINAL GI Status: No Symptoms - PAIN Pain Score: 0 - POST OP HYDRATION Hydration Status: Adequate & Stable
[2019-10-20] MEDS ORDERED: Ibuprofen 800 MG Tab PO SCH (10:35)
[2019-10-20] MEDS ORDERED: Ondansetron 4 MG/2 ML SDV IV PRN (10:35)
[2019-10-20] MEDS ORDERED: Naloxone 0.4 MG/ML SDV IVPUSH PRN (10:35)
[2019-10-20] MEDS ORDERED: diphenhydrAMINE 50 MG/ML SDV IVPUSH PRN ×2 (10:35→10:51)
[2019-10-20] MEDS ORDERED: Dextrose 5%-Lactated Ringers 1,000 ML IV SCH (10:35)
[2019-10-20] MEDS ORDERED: ePHEDrine 50 MG/ML SDV IVPUSH PRN ×2 (10:35→10:51)
[2019-10-20] MEDS ORDERED: Acetaminophen/oxyCODONE 325-5 MG Tab PO PRN (10:35)
--- NOTE | 2019-10-20 10:39 | PCM.PREANE ---
Preanesthetic Assessment - Procedure Proposed Procedure: C Section - Anesthesia/Transfusion/Family Hx Anesthesia History: Prior Anesthesia Without Reaction Family History of Anesthesia Reaction: No Transfusion History: No Prior Transfusion(s) - Review of Systems General: No Symptoms Pulmonary: No Symptoms Cardiovascular: No Symptoms Gastrointestinal: No Symptoms Neurological: No Symptoms Other: Reports: None - Physical Assessment NPO Status Date: 10/19/19 NPO Status Time: 23:59 Vital Signs: Last Vital Signs Temp 36.8 C 10/20/19 09:45 Pulse 90 10/20/19 05:30 Resp 16 10/20/19 09:45 BP 117/74 10/20/19 09:45 Pulse Ox 97 10/20/19 09:45 Height: 1.68 m Weight: 84.822 kg ASA Class: 2 Mental Status: Alert & Oriented x3 Airway Class: Mallampati = 1 Dentition: Reports: Normal Dentition Thyro-Mental Finger Breadths: 3 Mouth Opening Finger Breadths: 3 ROM/Head Extension: Full Lungs: Clear to Auscultation, Normal Respiratory Effort Cardiovascular: Regular Rate, Regular Rhythm - Lab Values: Laboratory Last Values WBC 10.74 K/mm3 (3.98-10.04) H 10/19/19 10:30 RBC 4.62 M/mm3 (3.98-5.22) 10/19/19 10:30 Hgb 13.7 gm/dl (11.2-15.7) D 10/19/19 10:30 Hct 41.3 % (34.1-44.9) 10/19/19 10:30 MCV 89.4 fl (79.4-94.8) 10/19/19 10:30 MCH 29.7 pg (25.6-32.2) 10/19/19 10:30 MCHC 33.2 g/dl (32.2-35.5) 10/19/19 10:30 RDW Std Deviation 44.4 fL (36.4-46.3) 10/19/19 10:30 Plt Count 181 K/mm3 (182-369) L 10/19/19 10:30 MPV 11.7 fl (9.4-12.3) 10/19/19 10:30 Neut % (Auto) 75.0 % (34.0-71.1) H 10/19/19 10:30 Lymph % (Auto) 16.2 % (19.3-51.7) L 10/19/19 10:30 [place] % (Auto) 6.1 % (4.7-12.5) 10/19/19 10:30 Eos % (Auto) 0.9 (0.7-5.8) 10/19/19 10:30 Baso % (Auto) 0.4 % (0.1-1.2) 10/19/19 10:30 Neut # (Auto) 8.05 K/mm3 (1.56-6.13) H 10/19/19 10:30 Lymph # (Auto) 1.74 K/mm3 (1.18-3.74) 10/19/19 10:30 [place] # (Auto) 0.66 K/mm3 (0.24-0.36) H 10/19/19 10:30 Eos # (Auto) 0.10 K/mm3 (0.04-0.36) 10/19/19 10:30 Baso # (Auto) 0.04 K/mm3 (0.01-0.08) 10/19/19 10:30 Manual Slide Review Normal smear 10/19/19 10:30 RPR Non-reactive (NONREACTIVE) 10/19/19 10:30 Blood Type A POSITIVE 10/19/19 10:30 Gel Antibody Screen Negative 10/19/19 10:30 - Allergies Allergies/Adverse Reactions: Allergies Allergy/AdvReac Type Severity Reaction Status Date / Time tretinoin [From Retin-A] Allergy Mild Rash Verified 10/19/19 15:31 - Acknowledgements Anesthesia Type Planned: Spinal Pt an Appropriate Candidate for the Planned Anesthesia: Yes Alternatives and Risks of Anesthesia Discussed w Pt/Guardian: Yes Pt/Guardian Understands and Agrees with Anesthesia Plan: Yes PreAnesthesia Questionnaire Respiratory History: Reports: Asthma Genitourinary History: Reports: Renal Calculus LICENSED SOCIAL WORKER History: Reports: , Other (See Below) Other OB/BYN History: "leep procedure for HPV". 1 SAB Psychiatric History: Reports: Addiction, Anxiety, Depression Other Psychiatric History: h/o alcholism in prental, patient on phone denied any alcohol/drug use. Dermatologic History: Reports: Eczema - Infectious Disease History Infectious Disease History: Reports: Chicken Pox - Past Surgical History Female Surgical History: Reports: LEEP Other Female Surgeries/Procedures: kidney stones, ovarian cystectomy 1999, leep 2011 Musculoskeletal Surgical History: Reports: Arthroscopic Procedure Other Musculoskeletal Surgeries/Procedures:: Left knee procedure 2010 - SUBSTANCE USE Smoking Status *Q: Never Smoker Tobacco Use Within Last Twelve Months: No Second Hand Smoke Exposure: No Recreational Drug Use History: No - HOME MEDS Home Medications: Home Meds Fish Oil/[place]-3 Fatty Acids [Fish Oil 1,000 MG] 1 each PO DAILY 02/26/18 [History] Albuterol [Proair HFA] 108 mcg INH ASDIRECTED PRN 10/19/19 [History] Olopatadine HCl 1 spray NS DAILY 10/19/19 [History] Pnv No.95/Ferrous Fum/Folic AC [ Caplet] 1 each PO DAILY 10/19/19 [History] - CURRENT (IN HOUSE) MEDS Current Meds: Current Medications Diphenhydramine HCl (Benadryl) 25 mg IVPUSH Q6H PRN PRN Reason: Itching or Nausea Docusate Sodium (Colace) 100 mg PO Q12H PRN PRN Reason: Constipation Ephedrine Sulfate (Ephedrine Sulfate) 5 mg IVPUSH SEECOMMENT PRN PRN Reason: Other Dextrose/Lactated Ringer's (Dextrose 5%-Lactated Ringers) 1,000 mls @ 125 mls/hr IV ASDIRECTED CHECO Stop: 10/20/19 18:34 Ibuprofen (Motrin) 800 mg PO Q8H [facility]CO Naloxone HCl (Narcan) 0.1 mg IVPUSH SEECOMMENT PRN PRN Reason: Respiratory Depression Ondansetron HCl (Zofran) 4 mg IV Q4H PRN PRN Reason: Nausea/Vomiting Oxycodone/Acetaminophen (Percocet 325-5 Mg) 1 tab PO Q4H PRN PRN Reason: Pain (moderate 4-6) Oxycodone/Acetaminophen (Percocet 325-5 Mg) 2 tab PO Q4H PRN PRN Reason: Pain (severe 7-10) Prenat Multivit/[place]/Iron/Folic Ac ( Plus Iron) 1 each PO DAILY [facility] Simethicone (Simethicone) 160 mg PO QID [facility] Discontinued Medications Albuterol (Proventil Hfa) 0 gm INH Q4H PRN PRN Reason: Wheezing Bupivacaine HCl (Marcaine 0.5%) Confirm Administered Dose 30 ml .ROUTE .STK-MED ONE Stop: 10/20/19 07:13 Bupivacaine HCl/Dextrose (Marcaine 0.75% Spinal) Confirm Administered Dose 2 ml .ROUTE .STK-MED ONE Stop: 10/20/19 07:11 Citric Acid/Sodium Citrate (Bicitra Solution) 30 ml PO ONETIME ONE Stop: 10/20/19 06:31 Last Admin: 10/20/19 06:47 Dose: 30 ml Documented by: Citric Acid/Sodium Citrate (Bicitra Solution) Confirm Administered Dose 30 ml .ROUTE .STK-MED ONE Stop: 10/20/19 06:41 Fentanyl (Sublimaze) Confirm Administered Dose 100 mcg .ROUTE .STK-MED ONE Stop: 10/20/19 08:18 Cefazolin Sodium/Dextrose 2 gm (/ Premix) 50 mls @ 100 mls/hr IV ONETIME ONE Stop: 10/20/19 07:29 Oxytocin/Lactated Ringer's (Pitocin In Lr 20 Units/1,000 Ml) 20 unit in 1,000 mls @ 500 mls/hr IV TITRATE CHECO; Protocol Lactated Ringer's (Ringers, Lactated) 1,000 mls @ 125 mls/hr IV ASDIRECTED CHECO Last Admin: 10/20/19 07:37 Dose: 125 mls/hr Documented by: Lactated Ringer's (Ringers, Lactated) Confirm Administered Dose 1,000 mls @ as directed .ROUTE .STK-MED ONE Stop: 10/20/19 06:46 Lactated Ringer's (Ringers, Lactated) Confirm Administered Dose 1,000 mls @ as directed .ROUTE .STK-MED ONE Stop: 10/20/19 07:26 Ketamine HCl (Ketalar) Confirm Administered Dose 500 mg .ROUTE .STK-MED ONE Stop: 10/20/19 08:20 Metoclopramide HCl (Reglan) 10 mg IVPUSH ONETIME ONE Stop: 10/20/19 06:31 Last Admin: 10/20/19 06:42 Dose: 10 mg Documented by: Metoclopramide HCl (Reglan) Confirm Administered Dose 10 mg .ROUTE .STK-MED ONE Stop: 10/20/19 06:41 Morphine Sulfate (Duramorph Pf) Confirm Administered Dose 1 mg .ROUTE .STK-MED ONE Stop: 10/20/19 07:10 Sodium Chloride (Saline Flush) 10 ml FLUSH ASDIRECTED PRN PRN Reason: Keep Vein Open
[2019-10-20] MEDS ORDERED: fentaNYL 100 MCG/2 ML SDV EPIDUR PRN (10:51)
[2019-10-20] MEDS ORDERED: Bupivacaine/fentaNYL/NS 100 ML Bag EPIDUR PRN (10:51)
[2019-10-20] MEDS: Simethicone 80 MG Tab.Chew PO SCH ×4 (16:30→20:29)
[2019-10-20] MEDS: Prenatal Multivitamin with Calcium/Folic Acid/Iron Tab PO SCH (16:30)
[2019-10-20] MEDS: Ibuprofen 800 MG Tab PO SCH (16:38)
[2019-10-20] MEDS: Docusate Sodium 100 MG Cap PO PRN (20:29)
[2019-10-20] MEDS: Acetaminophen/oxyCODONE 325-5 MG Tab PO PRN (20:29)
[2019-10-21] MEDS: Ibuprofen 800 MG Tab PO SCH ×3 (00:02→16:47)
[2019-10-21] MEDS: Acetaminophen/oxyCODONE 325-5 MG Tab PO PRN ×5 (04:00→22:19)
--- NOTE | 2019-10-21 07:38 | PCM48HPAN ---
Post Anesthesia Note - EVALUATION WITHIN 48HRS OF ANESTHETIC Vital Signs in Normal Range: Yes Patient Participated in Evaluation: Yes Respiratory Function Stable: Yes Airway Patent: Yes Cardiovascular Function Stable: Yes Hydration Status Stable: Yes Pain Control Satisfactory: Yes Nausea and Vomiting Control Satisfactory: Yes Mental Status Recovered: Yes Vital Signs: Last Vital Signs Temp 98.1 F 10/21/19 02:36 Pulse 74 10/21/19 02:36 Resp 14 10/21/19 05:56 BP 107/68 10/21/19 02:36 Pulse Ox 98 10/21/19 05:56
[2019-10-21] MEDS: Simethicone 80 MG Tab.Chew PO SCH ×4 (08:32→22:20)
[2019-10-21] MEDS: Docusate Sodium 100 MG Cap PO PRN (08:32)
[2019-10-21] MEDS: Prenatal Multivitamin with Calcium/Folic Acid/Iron Tab PO SCH (08:33)
--- NOTE | 2019-10-21 09:02 | PCM.SN.2 ---
- Free Text/Narrative Note: note: Operative day #1 Patient is doing well in the period. Minimal lochia, voiding well, ambulated without problems. Nursing without concerns. Patient is afebrile, vital signs are stable Abdomen is flat, soft, uterus is below the umbilicus and is firm and nontender. Incision appears dry, intact and without evidence of hematoma or seroma. Legs are nontender. Hemoglobin is 12.1. Platelets are 134,000. Assessment: recovery going well. Plan: Routine care. Patient be discharged home within the next 24-48 hours.
[2019-10-22] MEDS: Ibuprofen 800 MG Tab PO SCH ×2 (00:15→09:12)
[2019-10-22] MEDS: Acetaminophen/oxyCODONE 325-5 MG Tab PO PRN (06:09)
--- NOTE | 2019-10-22 08:35 | PCM.DCSUM1 ---
Discharge Summary - Hospital Course Free Text/Narrative:: Felicia is a 39-year-old 3 now para 2-0-1-2 white female who was admitted on 10/20/2023 primary section for breech presentation. Please see admission history and physical for details concerning H&P. Pre Op Diagnosis: 1. 39-4/7-week intrauterine . 2. Norma breech presentation. 3. Advanced maternal age of 39 years. 4. XXX sex chromosome composition. 5. 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 The baby is found to be in a norma breech presentation. Amniotic fluid is clear. Umbilical cord at 3 vessels in the uterus, tubes and ovaries were consistent with term . No abnormalities were noted. Baby lived at 0815 hrs. on 10/20/2019. The baby is a female infant weighing 2930 g (6 pounds 7 ounces) Apgars were 2 at 1 minute, 4 at 5 minutes and 9 at 10 minutes. Urine output was 250 cc. Estimated blood loss was 500 cc and IV fluid in was 2200 cc. patient is done well. She is breast-feeding without problems, incision appears to be healing well. Vital signs been stable. She has been afebrile. Patient is desiring discharge home. Karyotype has been done on the baby because of her XXX sex chromosomal composition. This is pending. Diagnosis: Stroke: No - Discharge Data Discharge Date: 10/22/19 Discharge Disposition: Home, Self-Care 01 Condition: Good - Referral to Home Health Primary Care Physician: Brett Martinez MD - Patient Summary/Data Operative Procedure(s) Performed: Primary low uterine segment transverse section through Pfannenstiel skin incision - Patient Instructions Diet: Regular Diet as Tolerated (Nursing diet with increased calories and calcium as directed.) Activity: As Tolerated (No intercourse or tampons until bleeding resolves. No lifting greater than 15 pounds or driving a car x1 week.) Driving: Do Not Drive Showering/Bathing: May Shower Wound/Incision Care: Keep Operative Site/Wound Site Clean and Dry Notify Provider of: Fever, Increased Pain, Swelling and Redness, Nausea and/or Vomiting - Discharge Plan Home Medications: Home Meds Fish Oil/[place]-3 Fatty Acids [Fish Oil 1,000 MG] 1 each PO DAILY 02/26/18 [History] Albuterol [Proair HFA] 108 mcg INH ASDIRECTED PRN 10/19/19 [History] Olopatadine HCl 1 spray NS DAILY 10/19/19 [History] Pnv No.95/Ferrous Fum/Folic AC [ Caplet] 1 each PO DAILY 10/19/19 [History] Acetaminophen/oxyCODONE [Percocet 325-5 MG] 2 tab PO Q4H PRN tablet 10/22/19 [Rx] Ibuprofen [Motrin] 800 mg PO Q8H tablet 10/22/19 [Rx] Referrals: Brett Martinez MD [Primary Care Provider] - - Discharge Summary/Plan Comment DC Time >30 min.: No Discharge Summary/Plan Comment: Discharge instructions: 1. Discharge home 2. Diet, activity and follow-up discussed with patient. Recommend nursing diet with increased calories and calcium. 3. Precautions given concern increased pain, bleeding, temperature, signs/symptoms of DVT/PE. 4. Medications per home medication was printed, discussed with and given to the patient. 5. Return to clinic-Dr. Martinez-[facility] in 2 weeks. Diagnosis: 1. Term -delivered by primary low uterine segment transverse section through Pfannenstiel skin incision under spinal block. 2. XXX sex chromosome [id number] pending 3. Norma breech presentation Condition: Good - Patient Data Vitals - Most Recent: Last Vital Signs Temp 36.9 C 10/22/19 03:11 Pulse 73 10/22/19 03:11 Resp 16 10/22/19 03:11 BP 106/74 10/22/19 03:11 Pulse Ox 98 10/22/19 03:11 Weight - Most Recent: 84.822 kg I&O - Last 24 hours: Intake & Output 10/21/19 10/22/19 10/22/19 22:59 06:59 14:59 Intake Total 240 Balance 240 Med Orders - Current: Current Medications Diphenhydramine HCl (Benadryl) 25 mg IVPUSH Q6H PRN PRN Reason: Itching or Nausea Diphenhydramine HCl (Benadryl) 25 mg IVPUSH Q6H PRN PRN Reason: pruritis Docusate Sodium (Colace) 100 mg PO Q12H PRN PRN Reason: Constipation Last Admin: 10/21/19 08:32 Dose: 100 mg Documented by: Ephedrine Sulfate (Ephedrine Sulfate) 5 mg IVPUSH SEECOMMENT PRN PRN Reason: Other Ephedrine Sulfate (Ephedrine Sulfate) 5 mg IVPUSH ASDIRECTED PRN PRN Reason: Hypotension Fentanyl (Sublimaze) 100 mcg EPIDUR Q3H PRN PRN Reason: Pain Fentanyl/Bupivacaine HCl (Fentanyl/Bupivacaine/Ns 2 Mcg-0.125% 100 Ml) 100 ml EPIDUR ASDIRECTED PRN PRN Reason: Pain Ibuprofen (Motrin) 800 mg PO Q8H [facility] Last Admin: 10/22/19 00:15 Dose: 800 mg Documented by: Naloxone HCl (Narcan) 0.1 mg IVPUSH SEECOMMENT PRN PRN Reason: Respiratory Depression Ondansetron HCl (Zofran) 4 mg IV Q4H PRN PRN Reason: Nausea/Vomiting Oxycodone/Acetaminophen (Percocet 325-5 Mg) 1 tab PO Q4H PRN PRN Reason: Pain (moderate 4-6) Last Admin: 10/22/19 06:09 Dose: 1 tab Documented by: Oxycodone/Acetaminophen (Percocet 325-5 Mg) 2 tab PO Q4H PRN PRN Reason: Pain (severe 7-10) Last Admin: 10/22/19 02:06 Dose: 2 tab Documented by: Prenat Multivit/[place]/Iron/Folic Ac ( Plus Iron) 1 each PO DAILY [facility] Last Admin: 10/21/19 08:33 Dose: 1 each Documented by: Simethicone (Simethicone) 160 mg PO QID [facility] Last Admin: 10/21/19 22:20 Dose: 160 mg Documented by: Discontinued Medications Albuterol (Proventil Hfa) 0 gm INH Q4H PRN PRN Reason: Wheezing Bupivacaine HCl (Marcaine 0.5%) Confirm Administered Dose 30 ml .ROUTE .STK-MED ONE Stop: 10/20/19 07:13 Last Admin: 10/20/19 08:11 Dose: 20 ml Documented by: Bupivacaine HCl/Dextrose (Marcaine 0.75% Spinal) Confirm Administered Dose 2 ml .ROUTE .STK-MED ONE Stop: 10/20/19 07:11 Citric Acid/Sodium Citrate (Bicitra Solution) 30 ml PO ONETIME ONE Stop: 10/20/19 06:31 Last Admin: 10/20/19 06:47 Dose: 30 ml Documented by: Citric Acid/Sodium Citrate (Bicitra Solution) Confirm Administered Dose 30 ml .ROUTE .STK-MED ONE Stop: 10/20/19 06:41 Fentanyl (Sublimaze) Confirm Administered Dose 100 mcg .ROUTE .STK-MED ONE Stop: 10/20/19 08:18 Cefazolin Sodium/Dextrose 2 gm (/ Premix) 50 mls @ 100 mls/hr IV ONETIME ONE Stop: 10/20/19 07:29 Oxytocin/Lactated Ringer's (Pitocin In Lr 20 Units/1,000 Ml) 20 unit in 1,000 mls @ 500 mls/hr IV TITRATE CHECO; Protocol Lactated Ringer's (Ringers, Lactated) 1,000 mls @ 125 mls/hr IV ASDIRECTED [facility] Last Admin: 10/20/19 07:37 Dose: 125 mls/hr Documented by: Lactated Ringer's (Ringers, Lactated) Confirm Administered Dose 1,000 mls @ as directed .ROUTE .STK-MED ONE Stop: 10/20/19 06:46 Lactated Ringer's (Ringers, Lactated) Confirm Administered Dose 1,000 mls @ as directed .ROUTE .STK-MED ONE Stop: 10/20/19 07:26 Dextrose/Lactated Ringer's (Dextrose 5%-Lactated Ringers) 1,000 mls @ 125 mls/hr IV ASDIRECTED [facility] Stop: 10/20/19 18:34 Last Admin: 10/20/19 11:52 Dose: 125 mls/hr Documented by: Ibuprofen (Motrin) 800 mg PO Q8H [facility] Ketamine HCl (Ketalar) Confirm Administered Dose 500 mg .ROUTE .STK-MED ONE Stop: 10/20/19 08:20 Metoclopramide HCl (Reglan) 10 mg IVPUSH ONETIME ONE Stop: 10/20/19 06:31 Last Admin: 10/20/19 06:42 Dose: 10 mg Documented by: Metoclopramide HCl (Reglan) Confirm Administered Dose 10 mg .ROUTE .STK-MED ONE Stop: 10/20/19 06:41 Morphine Sulfate (Duramorph Pf) Confirm Administered Dose 1 mg .ROUTE .STK-MED ONE Stop: 10/20/19 07:10 Sodium Chloride (Saline Flush) 10 ml FLUSH ASDIRECTED PRN PRN Reason: Keep Vein Open
[2019-10-22] MEDS: Simethicone 80 MG Tab.Chew PO SCH (09:12)
[2019-10-22] MEDS: Prenatal Multivitamin with Calcium/Folic Acid/Iron Tab PO SCH ×2 (09:12→09:13)
[2019-10-22] MEDS: Docusate Sodium 100 MG Cap PO PRN (09:48)
[2019-10-22 12:39] VITALS: BP 120/77; PULSE 81
== END 2019-10-22 11:30 | disposition home or self-care (01) | DRG 540 ==
LOC: JD.OB 05:35 → JD.MS 13:43 → JD.OB 13:49
PROVIDERS: ADMIT Obstetrics & Gynecology; ATTEND Obstetrics & Gynecology
PROC: 10D00Z1 Extraction of Products of Conception, Low, Open Approach (ICD-10-PCS; principal; 2019-10-20)
DX: O32.1XX0 Maternal care for breech presentation, not applicable or unspecified (principal); Z37.0 Single live birth; O36.5930 Maternal care for other known or suspected poor fetal growth, third trimester, not applicable or unspecified; O99.52 Diseases of the respiratory system complicating childbirth; J45.909 Unspecified asthma, uncomplicated; O99.344 Other mental disorders complicating childbirth; F41.9 Anxiety disorder, unspecified; F32.9 Major depressive disorder, single episode, unspecified; Z3A.39 39 weeks gestation of pregnancy
CPT/HCPCS: 01961; 36415; 59025; 85025; 86592; 86850; 86900; 86901; 94762; A9270-GY; J2274; J2765; J3010; J3490; J7120; J7121

== ENCOUNTER 2021-01-25 12:10 | Emergency (ER) | payer BC ==
[2021-01-25 12:35] VITALS: BP 131/91; PULSE 77
[2021-01-25] MEDS ORDERED: Famotidine 20 MG/2 ML SDV IVPUSH PRN (12:51)
[2021-01-25] MEDS ORDERED: diphenhydrAMINE 50 MG/ML SDV IVPUSH PRN (12:51)
[2021-01-25] MEDS ORDERED: EPINEPHrine 1 MG/ML SDV IM PRN (12:51)
[2021-01-25] MEDS ORDERED: methylPREDNISolone Sodium Succinate 125 MG/2 ML SDV IVPUSH PRN (12:51)
[2021-01-25] MEDS ORDERED: Sodium Chloride 0.9% 10 ML Syringe FLUSH SCH (13:00)
--- NOTE | 2021-01-25 13:19 | CR ---
Chest: Portable view of the chest was obtained. Comparison: Prior chest x-ray as 01/24/21. Slight parenchymal density is seen within the right lung base. Minimal atelectasis is seen within the left lung base. Upper lungs are clear. Heart size and mediastinum are normal. Bony structures are unremarkable. Impression: 1. Parenchymal density within the right lung base due to small area of pneumonia which could be either bacterial as well as COVID-19 pneumonia. 2. Mild atelectasis within the left lung base. Diagnostic code #3
--- NOTE | 2021-01-25 15:26 | EDM.PDOC ---
ED HPI GENERAL MEDICAL PROBLEM - General Chief Complaint: Respiratory Problem Stated Complaint: COVID+ SOB Time Seen by Provider: 01/25/21 12:20 Source of Information: Reports: Patient, Old Records, RN Notes Reviewed History Limitations: Reports: No Limitations - History of Present Illness INITIAL COMMENTS - FREE TEXT/NARRATIVE: Patient is a 40-year-old female presenting to the emergency department with complaints of Covid symptoms. Reports that she is approximate not day 9 of her illness. She complains of cough, shortness of breath, headache, fatigue, body aches, nausea, and diarrhea. She was seen in the clinic yesterday and diagnosed with mycoplasma pneumonia. She was started on doxycycline as well as albuterol and Tessalon Perles. Patient reports that she had a visit with an online medical provider last week and was given a prescription for ivermectin. Reports she took it for 5 days last week and does not feel that it is helping. She was not vaccinated. She reports that today her cough felt like it was "more in her lungs "so she felt that she should be reevaluated. She was scheduled to have monoclonal antibody infusion today, however they called and canceled the appointment as they did not have anybody available to do the infusion. She would like to receive this today. Patient denies any chest pain. She has no chronic underlying medical conditions. Headache Pain Score (Numeric/FACES): 5 - Related Data Allergies Allergy/AdvReac Type Severity Reaction Status Date / Time tretinoin [From Retin-A] Allergy Mild Rash Verified 10/19/19 15:31 Home Meds: Home Meds Fish Oil/[place]-3 Fatty Acids [Fish Oil 1,000 MG] 1 each PO DAILY 02/26/18 [His tory] Albuterol [Proair HFA] 108 mcg INH ASDIRECTED PRN 10/19/19 [History] Olopatadine HCl 1 spray NS DAILY 10/19/19 [History] Pnv No.95/Ferrous Fum/Folic AC [ Caplet] 1 each PO DAILY 10/19/19 [History] Acetaminophen/oxyCODONE [Percocet 325-5 MG] 2 tab PO Q4H PRN tablet 10/22/19 [Rx] Ibuprofen [Motrin] 800 mg PO Q8H tablet 10/22/19 [Rx] Past Medical History Respiratory History: Reports: Asthma Genitourinary History: Reports: Renal Calculus 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: Reports: Other (See Below) Other 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: "leep procedure for HPV" Psychiatric History: Reports: Addiction, Anxiety, Depression Other Psychiatric History: states abuses alcohol Dermatologic History: Reports: Eczema - Infectious Disease History Infectious Disease History: Reports: Chicken Pox - Past Surgical History Female Surgical History: Reports: Other (See Below) Other Female Surgeries/Procedures: kidney stones Social & Family History - Family History Family Medical History: No Pertinent Family History - Caffeine Use Caffeine Use: Reports: Coffee - Living Situation & Occupation Living situation: Reports: , with Family Occupation: Employed ED ROS GENERAL - Review of Systems Review Of Systems: Comprehensive ROS is negative, except as noted in HPI. ED EXAM, GENERAL - Physical Exam Exam: See Below Exam Limited By: No Limitations General Appearance: Alert, WD/WN, No Apparent Distress Respiratory/Chest: No Respiratory Distress, Lungs Clear, Normal Breath Sounds, No Accessory Muscle Use, Chest Non-Tender Cardiovascular: Normal Peripheral Pulses, Regular Rate, Rhythm, No Edema, No Gallop, No JVD, No Murmur, No Rub GI/Abdominal: Normal Bowel Sounds, Soft, Non-Tender, No Organomegaly, No Distention, No Abnormal Bruit, No Mass Neurological: Alert, Oriented, Normal Cognition, Normal Gait, No Motor/Sensory Deficits Psychiatric: Normal Affect, Normal Mood Skin Exam: Warm, Dry, Intact, Normal Color, No Rash Course - Vital Signs Last Recorded V/S: Last Vital Signs Temp 97.8 F 01/25/21 12:30 Pulse 77 01/25/21 12:30 Resp 20 01/25/21 12:30 BP 131/91 H 01/25/21 12:30 Pulse Ox 97 01/25/21 12:30 - Orders/Labs/Meds Orders: Active Orders 24 hr Category Date Time Status Vital Signs [RC] Q15M Care 01/25/21 12:51 Active EPINEPHrine [Adrenalin] Med 01/25/21 12:51 Active 0.3 mg IM ASDIRECTED PRN Famotidine [Pepcid] Med 01/25/21 12:51 Active 20 mg IVPUSH ASDIRECTED PRN Sodium Chloride 0.9% [Saline Flush] Med 01/25/21 13:00 Active 30 ml FLUSH ASDIRECTED diphenhydrAMINE [Benadryl] Med 01/25/21 12:51 Active 50 mg IVPUSH ASDIRECTED PRN methylPREDNISolone Sod Succ [Solu-MEDROL] Med 01/25/21 12:51 Active 125 mg IVPUSH ASDIRECTED PRN Medication Orders Diphenhydramine HCl (Diphenhydramine 50 Mg/Ml Sdv) 50 mg IVPUSH ASDIRECTED PRN PRN Reason: hypersensitivity reaction Epinephrine HCl (Epinephrine 1 Mg/Ml Sdv) 0.3 mg IM ASDIRECTED PRN PRN Reason: hypersensitivity reaction Famotidine (Famotidine 20 Mg/2 Ml Sdv) 20 mg IVPUSH ASDIRECTED PRN PRN Reason: hypersensitivity reaction Methylprednisolone Sodium Succinate (Methylprednisolone Sodium Succinate 125 Mg/2 Ml Sdv) 125 mg IVPUSH ASDIRECTED PRN PRN Reason: hypersensitivity reaction Sodium Chloride (Sodium Chloride 0.9% 10 Ml Syringe) 30 ml FLUSH ASDIRECTED [facility] Labs: Laboratory Tests 01/25/21 01/25/21 01/25/21 Range/Units 13:10 13:10 13:10 WBC 4.33 (3.98-10.04) K/mm3 RBC 4.82 (3.98-5.22) M/mm3 Hgb 14.2 (11.2-15.7) gm/dl Hct 41.8 (34.1-44.9) % MCV 86.7 (79.4-94.8) fl MCH 29.5 (25.6-32.2) pg MCHC 34.0 (32.2-35.5) g/dl RDW Std Deviation 39.3 (36.4-46.3) fL Plt Count 179 L (182-369) K/mm3 MPV 10.7 (9.4-12.3) fl Neut % (Auto) 67.3 (34.0-71.1) % Lymph % (Auto) 24.2 (19.3-51.7) % Dickens % (Auto) 7.6 (4.7-12.5) % Eos % (Auto) 0.2 L (0.7-5.8) Baso % (Auto) 0.5 (0.1-1.2) % Neut # (Auto) 2.91 (1.56-6.13) K/mm3 Lymph # (Auto) 1.05 L (1.18-3.74) K/mm3 Dickens # (Auto) 0.33 (0.24-0.36) K/mm3 Eos # (Auto) 0.01 L (0.04-0.36) K/mm3 Baso # (Auto) 0.02 (0.01-0.08) K/mm3 D-Dimer, Quantitative 0.34 (0.19-0.50) mg/L Sodium 145 (136-145) mEq/L Potassium 4.3 (3.5-5.1) mEq/L Chloride 109 H (98-107) mEq/L Carbon Dioxide 25 (21-32) mEq/L Anion Gap 15.3 H (5-15) BUN 7 (7-18) mg/dL Creatinine 0.6 (0.55-1.02) mg/dL Est Cr Clr Drug Dosing 116.68 mL/min Estimated GFR (MDRD) > 60 (>60) mL/min BUN/Creatinine Ratio 11.7 L (14-18) Glucose 97 (70-99) mg/dL Calcium 8.8 (8.5-10.1) mg/dL Total Bilirubin 0.3 (0.2-1.0) mg/dL AST 19 (15-37) U/L ALT 29 (14-59) U/L Alkaline Phosphatase 65 (46-116) U/L Total Protein 6.9 (6.4-8.2) g/dl Albumin 3.6 (3.4-5.0) g/dl Globulin 3.3 gm/dL Albumin/Globulin Ratio 1.1 (1-2) Meds: Medications Generic Name Dose Route Start Last Admin Trade Name Freq PRN Reason Stop Dose Admin Diphenhydramine HCl 50 mg 01/25/21 12:51 Diphenhydramine 50 Mg/Ml Sdv IVPUSH ASDIRECTED PRN hypersensitivity reaction Epinephrine HCl 0.3 mg 01/25/21 12:51 Epinephrine 1 Mg/Ml Sdv IM ASDIRECTED PRN hypersensitivity reaction Famotidine 20 mg 01/25/21 12:51 Famotidine 20 Mg/2 Ml Sdv IVPUSH ASDIRECTED PRN hypersensitivity reaction Methylprednisolone Sodium Succinate 125 mg 01/25/21 12:51 Methylprednisolone Sodium Succinate 125 Mg/2 Ml Sdv IVPUSH ASDIRECTED PRN hypersensitivity reaction Sodium Chloride 30 ml 01/25/21 13:00 Sodium Chloride 0.9% 10 Ml Syringe FLUSH ASDIRECTED [facility] Discontinued Medications Generic Name Dose Route Start Last Admin Trade Name Michelle PRN Reason Stop Dose Admin Bamlanivimab 700 mg/ 310 mls @ 310 mls/hr 01/25/21 13:30 01/25/21 13:27 Etesevimab 1,400 mg/ Sodium IV 01/25/21 14:29 310 mls/hr Chloride ONETIME ONE Administration - Re-Assessments/Exams Free Text/Narrative Re-Assessment/Exam: Patient is a 40-year-old female presenting to the emergency department for evaluation of ongoing Covid symptoms. She is approximate 9 days into the course of her illness. Was seen in the clinic yesterday and started on doxycycline for positive mycoplasma pneumonia. She was also given albuterol and Tessalon Perles, however she states that she has not picked these up or taken these. She is taking the doxycycline. She has been on ivermectin since last week and does not feel that it is helping. She questioned if she could stop this medication. I advised her ivermectin is not approved for treatment of Covid, therefore I would recommend that she stop this medication at this time as she is not benefiting from it. I have ordered blood work and chest x-ray. I spoke with patient to provide information about Regeneron treatment for patient I offered them the ``Patient and Caregiver EUA Regeneron Fact Sheet to read and review I stated the drug has been approved by an emergency use authorization (EUA) process and has not fully been FDA reviewed or approved The patient meets the EUA requirements I discussed there are other potential treatment options that are currently not FDA approved to treat COVID-19. Offered opportunity to ask questions and all questions were answered Patient voiced understanding and agreed to proceed with treatment for patient. 01/25/21 15:24 Hematology is unremarkable. Chest x-ray impression as follows: 1. Parenchymal density within the right lung base due to small area of pneumonia which could be either bacterial as well as Covid 19 pneumonia. 2. Atelectasis is seen within left lung base. This is an interval change from a chest x-ray completed yesterday. Patient has completed her monoclonal antibody infusion without adverse event. I will recommend that she continue her doxycycline as prescribed. Discussed return precautions. Discharge instructions as documented. Departure - Departure Time of Disposition: 15:24 Disposition: Home, Self-Care 01 Condition: Good Clinical Impression: Pneumonia due to COVID-19 virus - Discharge Information *PRESCRIPTION DRUG MONITORING PROGRAM REVIEWED*: No *COPY OF PRESCRIPTION DRUG MONITORING REPORT IN PATIENT STEVEN: No Instructions: COVID-19 Referrals: Alivia Paredes MD [Primary Care Provider] - Additional Instructions: Continue medications that were prescribed yesterday. You may stop the ivermectin. Ensure that you are taking an adequate amount of fluid. Use Tylenol or ibuprofen as needed for fever or discomfort Return to ER for any new or worsening symptoms of concern. Sepsis Event Note (ED) - Evaluation Sepsis Screening Result: No Definite Risk - Focused Exam Vital Signs: Vital Signs Temp Pulse Resp BP Pulse Ox 01/25/21 12:30 97.8 F 77 20 131/91 H 97 - My Orders Last 24 Hours: My Active Orders 01/25/21 12:51 Vital Signs [RC] Q15M EPINEPHrine [Adrenalin] 0.3 mg IM ASDIRECTED PRN Famotidine [Pepcid] 20 mg IVPUSH ASDIRECTED PRN diphenhydrAMINE [Benadryl] 50 mg IVPUSH ASDIRECTED PRN methylPREDNISolone Sod Succ [Solu-MEDROL] 125 mg IVPUSH ASDIRECTED PRN 01/25/21 13:00 Sodium Chloride 0.9% [Saline Flush] 30 ml FLUSH ASDIRECTED - Assessment/Plan Last 24 Hours: My Active Orders 01/25/21 12:51 Vital Signs [RC] Q15M EPINEPHrine [Adrenalin] 0.3 mg IM ASDIRECTED PRN Famotidine [Pepcid] 20 mg IVPUSH ASDIRECTED PRN diphenhydrAMINE [Benadryl] 50 mg IVPUSH ASDIRECTED PRN methylPREDNISolone Sod Succ [Solu-MEDROL] 125 mg IVPUSH ASDIRECTED PRN 01/25/21 13:00 Sodium Chloride 0.9% [Saline Flush] 30 ml FLUSH ASDIRECTED
== END 2021-01-25 15:39 | disposition home or self-care (01) ==
LOC: JD.ED 12:10
DX: U07.1 COVID-19 (principal); J12.82 Pneumonia due to coronavirus disease 2019; Z88.8 Allergy status to other drugs, medicaments and biological substances
CPT/HCPCS: 36415; 71045; 80053; 85025; 85379; 99285; J7050; M0245; Q0245; 99284

== ENCOUNTER 2022-01-03 10:29 | Day surgery (SDC) | payer BC ==
[~2022-01-03 10:29] MED LIST changes: +EPINEPHrine 1 MG/ML 30 ML MDV IRR SCH; +Lactated Ringers 1,000 ML IV SCH; +Lidocaine 1%/Sod Bicarbonate in NS 8.4% 1 ML Syringe IDERM PRN; +Sodium Chloride 0.9% 10 ML Syringe FLUSH SCH
[2022-01-03] MEDS ORDERED: EPINEPHrine 1 MG/ML SDV ONE (11:25)
[2022-01-03] MEDS ORDERED: Ropivacaine 0.5% 5 MG/ML 30 ML SDV ONE (11:25)
[2022-01-03] MEDS ORDERED: Rocuronium 50 MG/5 ML Vial ONE (11:27)
[2022-01-03] MEDS ORDERED: Ondansetron 4 MG/2 ML SDV ONE (11:27)
[2022-01-03] MEDS ORDERED: Midazolam 1 MG/ML 2 ML SDV ONE (11:28)
[2022-01-03] MEDS ORDERED: Lidocaine 1% 5 ML VIAL ONE (11:28)
[2022-01-03] MEDS ORDERED: fentaNYL 250 MCG/5 ML SDV ONE (11:28)
[2022-01-03] MEDS ORDERED: Propofol 200 MG/20 ML SDV ONE (11:28)
[2022-01-03] MEDS ORDERED: Lidocaine 1% 2 ML ONE (11:31)
[2022-01-03] MEDS ORDERED: Dexmedetomidine 200 MCG/2 ML SDV ONE (11:34)
[2022-01-03] MEDS ORDERED: ceFAZolin 2 GM Vial ONE (12:45)
[2022-01-03] MEDS ORDERED: Dexamethasone 4 MG/ML 5 ML MDV ONE (12:50)
[2022-01-03] MEDS ORDERED: Ondansetron 4 MG/2 ML SDV IVPUSH PRN (13:00)
[2022-01-03] MEDS ORDERED: fentaNYL 100 MCG/2 ML SDV IVPUSH PRN (13:00)
[2022-01-03] MEDS ORDERED: HYDROmorphone 0.5 MG/0.5 ML Syringe IVPUSH PRN (13:00)
[2022-01-03] MEDS ORDERED: ePHEDrine 50 MG/ML SDV ONE (13:11)
[2022-01-03] MEDS ORDERED: Lactated Ringers 1,000 ML ONE (13:12)
[2022-01-03] MEDS ORDERED: Ketorolac 30 MG/ML SDV ONE (13:19)
[2022-01-03] MEDS ORDERED: Neostigmine Methylsulfate 10 MG/10 ML MDV ONE (13:30)
[2022-01-03] MEDS ORDERED: Acetaminophen/oxyCODONE 325-5 MG Tab PO ONE (13:58)
[2022-01-03 15:45] VITALS: BP 133/77; PULSE 77
== END 2022-01-03 15:46 | disposition home or self-care (01) ==
LOC: JD.SDS 10:29
PROVIDERS: ATTEND Orthopaedic Surgery
DX: S43.431A Superior glenoid labrum lesion of right shoulder, initial encounter (principal); M75.21 Bicipital tendinitis, right shoulder; F41.9 Anxiety disorder, unspecified; F32.A Depression, unspecified; M19.90 Unspecified osteoarthritis, unspecified site; J45.909 Unspecified asthma, uncomplicated; Z79.899 Other long term (current) drug therapy; Z88.8 Allergy status to other drugs, medicaments and biological substances; Z91.048 Other nonmedicinal substance allergy status; Z98.890 Other specified postprocedural states; Z87.891 Personal history of nicotine dependence
CPT/HCPCS: 01630; 64415; 76942; 81025; A9270-GY; C1713; J0171; J0690; J1100; J1885; J2250; J2405; J2704; J2710; J2795; J3010; J7120

== ENCOUNTER 2022-02-27 19:24 | Emergency (ER) | payer BC | END 2022-02-27 20:57 | disposition left against medical advice (07) | LOC: JD.ED 19:24 | DX: Z53.21 Procedure and treatment not carried out due to patient leaving prior to being seen by health care provider (principal) ==

== ENCOUNTER 2024-12-02 08:21 | Day surgery (SDC) | payer BC ==
[2024-12-02] MEDS ORDERED: fentaNYL 100 MCG/2 ML SDV ONE (08:41)
[2024-12-02] MEDS ORDERED: Propofol 200 MG/20 ML SDV ONE (08:41)
[2024-12-02] MEDS ORDERED: Midazolam 1 MG/ML 2 ML SDV ONE (08:41)
[2024-12-02] MEDS ORDERED: Dexamethasone 4 MG/ML 5 ML MDV ONE (08:41)
[2024-12-02] MEDS ORDERED: propofoL 500 MG/50 ML 50 ML ONE ×2 (08:41→10:09)
[2024-12-02] MEDS ORDERED: Ondansetron 4 MG/2 ML SDV ONE (08:41)
[2024-12-02] MEDS ORDERED: Ropivacaine 0.5% 5 MG/ML 30 ML SDV ONE (08:41)
[2024-12-02] MEDS: Lactated Ringers 1,000 ML IV SCH (08:45)
[2024-12-02 09:00] LABS: BASOPHILS ABSOLUTE AUTO 0.1 K/mm3 (0.0-0.2); BASOPHILS PERCENT AUTO 0.6 % (0.0-1.0); EOSINOPHILS ABSOLUTE AUTO 0.1 K/mm3 (0.0-0.4); EOSINOPHILS PERCENT AUTO 0.7 % (0.0-6.0); IMMATURE GRAN ABSOLUTE AUTO 0.02 K/mm3 (0.00-0.05); IMMATURE GRAN PERCENT AUTO 0.2 % (0.0-0.4); LYMPHOCYTES ABSOLUTE AUTO 2.2 K/mm3 (1.0-4.8); LYMPHOCYTES PERCENT AUTO 26.0 % (24.0-44.0); MEAN PLATELET VOLUME 10.2 fl (9.4-12.3); MONOCYTES ABSOLUTE AUTO 0.4 K/mm3 (0.0-0.8); MONOCYTES PERCENT AUTO 4.4 % (0.0-8.0); NEUTROPHILS ABSOLUTE AUTO 5.8 K/mm3 (1.8-7.7); NEUTROPHILS PERCENT AUTO 68.1 % (41.0-71.0); NRBC ABSOLUTE 0.00 (0.00-0.02); NRBC PERCENT 0.0 % (0.0-0.2); PLATELET COUNT,PLT 270 K/mm3 (150-400); RED BLOOD CELL COUNT 4.87 M/mm3 (4.10-5.30); WHITE BLOOD CELL COUNT,WBC 8.54 K/mm3 (3.9-11.3)
[2024-12-02] MEDS ORDERED: fentaNYL 100 MCG/2 ML SDV IVPUSH PRN (09:33)
[2024-12-02 09:49] LABS: CARBON DIOXIDE,CO2 26.0 mEq/L (21-32); CHLORIDE,CL 104.0 mEq/L (98-107); POTASSIUM,K 4.1 mEq/L (3.5-5.1); SODIUM,NA 138.0 mEq/L (136-145)
[2024-12-02] MEDS ORDERED: Lactated Ringers 1,000 ML IV ONE (10:00)
[2024-12-02] MEDS: EPINEPHrine 1 MG/ML SDV ONE (10:00)
[2024-12-02] MEDS: Triamcinolone Acetonide 40 MG/ML 1 ML SDV ONE (10:24)
[2024-12-02] MEDS: Acetaminophen/oxyCODONE 325-5 MG Tab PO PRN (12:19)
[2024-12-02 13:43] VITALS: BP 117/73; PULSE 89
== END 2024-12-02 13:00 | disposition home or self-care (01) ==
LOC: JD.SDS 08:21
PROVIDERS: ATTEND Orthopaedic Surgery
DX: S43.432A Superior glenoid labrum lesion of left shoulder, initial encounter (principal); M75.22 Bicipital tendinitis, left shoulder; Z88.8 Allergy status to other drugs, medicaments and biological substances; Z79.899 Other long term (current) drug therapy; Z87.891 Personal history of nicotine dependence
CPT/HCPCS: 29807; 36415; 64415; 80051; 81025; 85025; A9270; J0169; J0665; J0690; J1100; J2003; J2250; J2405; J2704; J2795; J3010; J3301; J7120; 01630; C1713; J3490